=== PATIENT | female | born 1935 | race Caucasian/White ===

== ENCOUNTER → 2018-03-08 | Outpatient (CLI) | payer OTHER | LOC: CIMAGING 12:56 | PROVIDERS: ATTEND Emergency Medicine | DX: N64.4 Mastodynia (principal) | CPT/HCPCS: 76641-PO ==

== ENCOUNTER 2018-05-01 10:25 | Emergency (ER) | payer OTHER ==
[2018-05-01] MEDS ORDERED: ACETAMINOPHEN 500 MG TAB ONE ×2 (11:07→11:08)
[2018-05-01] MEDS ORDERED: ACETAMINOPHEN 160 MG/5 ML UDCUP PO ONE (11:08)
--- NOTE | 2018-05-01 11:11 | EDPHY ---
H & P Time Seen by Provider: 05/01/18 10:49 HPI/ROS: CHIEF COMPLAINT: Low back pain History by patient HISTORY OF PRESENT ILLNESS: 82-year-old woman with a history of cancer and osteopenia presents complaining of 24 hr of right-sided low back pain. Patient denies any trauma. She states that she has some mild back pain from time to time but usually isn't so severe. Last night it seemed to get worse requiring her to take ibuprofen 200 mg. This morning she took a total of 600 mg without any relief. She says the pain is about an 8/10. Pain is worse when she gets up and stands or moves around. She is not limping. She denies any shooting pains down her leg. She denies any focal numbness or weakness. She denies any bowel or bladder dysfunction or incontinence. She has some chronic urinary frequency which she does not relate as a new symptoms or back pain. She denies any dysuria urgency, fever, nausea or vomiting. She denies any abdominal pain. REVIEW OF SYSTEMS: As in HPI, and all other systems reviewed and are negative Smoking Status: Never smoked Physical Exam: General Appearance: Alert, elderly, nontoxic-appearing Head: Normocephalic, atraumatic Eyes: Pupils equal and round, no pallor or injection. ENT, Mouth: Mucous membranes moist. Neck: No bony tenderness, full range of motion Gastrointestinal: Abdomen is soft and nontender, no masses, bowel sounds normal. Neurological: Awake, alert and oriented x 3, no pronator drift, normal gait, no pronator drift, DTRs 2+ and equal bilaterally in knees and ankles, no pain with straight leg raise, strength is 5/5 and equal bilaterally in lower extremities Back: Marked kyphosis, No bony tenderness, no CVA tenderness Skin: Warm and dry, no rashes. Musculoskeletal: Neck is supple, FROM, nontender. Pelvis is stable and nontender Extremities: symmetrical, full range of motion, DP pulses are 2+ and equal bilaterally Psychiatric: Patient has normal affect, there is no agitation. Constitutional: Initial Vital Signs Temperature (C) 36.6 C 05/01/18 10:35 Heart Rate 87 05/01/18 10:35 Respiratory Rate 16 05/01/18 10:35 Blood Pressure 196/102 H 05/01/18 10:35 O2 Sat (%) 96 05/01/18 10:35 O2 Delivery Mode Room Air Allergies/Adverse Reactions: No Known Allergies Allergy (Verified 05/01/18 10:40) Home Medications: Medication Instructions Recorded Levothyroxine 05/01/18 Lidocaine [Lidoderm] 1 each TP DAILY PRN #30 adh..patch 05/01/18 Prolia 05/01/18 MDM/Departure - MDM Imaging: Discussed imaging studies w/ call person Radiologist Medications Given: Discontinued Medications Acetaminophen (Tylenol 160mg/5ml Oral Liquid) 1,000 mg PO EDNOW ONE Stop: 05/01/18 11:09 Last Admin: 05/01/18 11:21 Dose: Not Given Acetaminophen (Tylenol) 1,000 mg PO EDNOW ONE Stop: 05/01/18 11:16 Last Admin: 05/01/18 11:15 Dose: 1,000 mg ED Course/Re-evaluation: 82-year-old woman with history of osteopenia presents complaining of right- sided low back pain with chronic kyphosis and normal neurologic exam. Patient was given Tylenol for her pain with slight improvement although her pain persisted the patient declined any further pain medications. Urinalysis was positive for blood but no evidence of infection. Patient has no prior history of kidney stones. I was concerned about a vertebral compression fracture versus kidney stone and therefore a noncontrast CT scan was obtained. CT was read as the radiologist as no evidence of a kidney stone or vertebral fracture. Her aorta was calcified but there was no evidence of aneurysm, though the study was done without contrast. Patient has a history of white coat hypertension but has never been on antihypertensive medicine in her states her blood pressure is always high when she sees a medical provider but is otherwise normal. I discussed the findings with the patient and her . We will have her follow up with her primary care physician Dr. Schmidt to re-evaluate her back pain as well as the hematuria. We discussed return precautions. 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 Soo Calderon today. Your urine test was positive for blood. A urine culture is pending. We will call you if this is positive for infection. If there is no infection you will need follow-up testing for this blood in your urine. Your CT scan showed no evidence of a broken bone or kidney stone. The cause of your back pain is unclear at this time. Please follow-up with Dr. Schmidt for further evaluation. Return for any worsening or new concerns, including but not limited to uncontrolled pain, inability to walk, loss of bowel or bladder control or numbness or weakness in her legs or fever.. Prescriptions: Lidocaine [Lidoderm] 1 each TP DAILY PRN #30 adh..patch PRN Reason: pain Referrals: Gem Ng MD [Primary Care Provider] - As per Instructions
[2018-05-01] MEDS ORDERED: ACETAMINOPHEN 500 MG TAB PO ONE (11:15)
[2018-05-01 12:31] VITALS: BP 176/99
== END 2018-05-01 12:47 | disposition home or self-care (01) ==
LOC: CED 10:25
DX: M54.5 Low back pain (principal); R31.9 Hematuria, unspecified
CPT/HCPCS: 74176-PO

== ENCOUNTER → 2019-02-21 | Outpatient (CLI) | payer OTHER | LOC: EMCIMAGING 09:26 ==